=== PATIENT | female | born 1930 | race Caucasian/White ===

== ENCOUNTER 2018-07-07 11:58 | Emergency (ER) | payer MEDICARE ==
[~2018-07-07] VITALS: Ht 162.6 cm; Wt 80.0 kg
[2018-07-07] MEDS ORDERED: CLOP75TA16 PO (12:04)
[2018-07-07] MEDS ORDERED: HYDR-4133 PO (12:04)
[2018-07-07] MEDS ORDERED: LISI2.5T47 PO (12:04)
[2018-07-07] MEDS ORDERED: LOSA25TA3 PO (12:04)
[2018-07-07] MEDS ORDERED: MORPHINE SULFATE 4 MG/ML CPJ (NOT FOR IM USE) IV STA (12:18)
[2018-07-07] MEDS ORDERED: ONDANSETRON HCL 4MG/2ML INJ IV STA (12:18)
[2018-07-07] MEDS ORDERED: SODIUM CHLORIDE 0.9% 1,000 ML IV ONE (12:18)
[2018-07-07 13:01] LABS: CLARITY URINE CLOUDY (CLEAR); COLOR URINE YELLOW (YELLOW); KETONES URINE NEGATIVE (NEGATIVE); LEUKOCYTE ESTERASE URINE 2+ (NEGATIVE); NITRITE URINE NEGATIVE (NEGATIVE); OCCULT BLOOD URINE NEGATIVE (NEGATIVE); PH URINE 5.5 (4.5-8.0); PROTEIN URINE 2+ (NEGATIVE); UROBILINOGEN URINE 0.2 E.U./dL (0.2-1.0)
[2018-07-07 13:03] LABS: CHLORIDE 107 mEq/L (98-107)
[2018-07-07 13:30] LABS: BASOPHILS % 0.5 % (0.0-2.0); EOSINOPHILS % 2.4 % (0.0-5.0); HEMATOCRIT. 37.6 % (36.0-48.0); HEMOGLOBIN. 12.7 g/dL (12.0-16.0); LYMPHOCYTES % 33.1 % (20.0-50.0); MEAN CORPUSCULAR HEMOGLOBIN 29.2 pg (28.0-32.0); MEAN CORPUSCULAR VOLUME 86.3 fL (81.0-99.0); MEAN PLATELET VOLUME 9.2 fl (7.4-10.4); MONOCYTES % 9.6 % (2.0-8.0); NEUTROPHILS % 54.4 % (40.0-76.0); PLATELET 193 x1000/uL (130-400); RED BLOOD CELL COUNT 4.36 mill/uL (4.2-5.4); RED CELL DISTRIBUTION WIDTH 13.9 % (11.6-14.6)
[2018-07-07] MEDS ORDERED: IOHEXOL-350 100 ML BOTTLE ONE (15:15)
[2018-07-07] MEDS ORDERED: LEVOFLOXACIN 750MG PREMIX 150 ML IV ONE (15:30)
[2018-07-07] MEDS ORDERED: ASPIRIN 325MG EC TABLET PO ONE (15:45)
[2018-07-07 20:58] VITALS: BP 137/50
== END 2018-07-07 21:15 | disposition short-term general hospital (02) ==
LOC: ER 11:58 → EDBEDREQ 15:43 → ENRESERV 20:37 → CANRESERV 20:43 → ENRESERV 20:43 → ER 21:15 → CANBEDREQ 23:56
DX: N39.0 Urinary tract infection, site not specified (principal); R94.31 Abnormal electrocardiogram [ECG] [EKG]
CPT/HCPCS: 36415; 71045; 74177; 80048; 80053; 81003; 82962; 83690; 84484; 85025; 87086; 93005; 96365; 96375; 99285; J1956; J2270; J2405; J7030; Q9967